=== PATIENT | male | born 1980 | race African-American/Black ===

== ENCOUNTER 2018-07-08 04:50 | Emergency (ER) | payer OTHER ==
[~2018-07-08] VITALS: Ht 175.3 cm; Wt 95.3 kg
[~2018-07-08 04:50] MED LIST: AMOXICILLIN 50500 M1 PO; AMOXICILLIN 50500 MG PO; BACTRIM DS TAB1 EACH PO; CEPHALEXIN 500500 M3 PO; DOXYCYCLINE 10100 MG PO; HYDROCODONE-APA1 TA1 PO; IBUPROFEN 800800 MG PO; LORTABELXR PO; NOHOMEMEDICATIONS; NORCO 5-325 TA1 EACH PO; PROVENTIL HFA6.7 G1 INH; TRAMADOL 50 MG50 MG PO; XANAX 0.25 MG0.25 MG PO; ZOFRAN ODT4 MG PO
[2018-07-08 05:20] LABS: ABSOLUTE EOSINOPHILS 0.1 thou/uL (0.0-0.7); ABSOLUTE MONOCYTES 0.3 thou/uL (0.0-1.2); ABSOLUTE NEUTROPHILS 5.3 thou/uL (1.6-8.1); BASOPHILS 0.5 %; EOSINOPHILS 0.7 %; HEMATOCRIT 43.1 % (42.0-52.0); HEMOGLOBIN 14.6 gm/dL (14.0-18.0); LYMPHOCYTES 25.8 %; MCH 32.3 pg (26.0-34.0); MCHC 33.9 g/dL (28.0-37.0); MCV 95.2 fL (80.0-100.0); MPV 10.3 fl. (7.2-11.1); NUCLEATED RBCS 0 /100WBC; PLATELET COUNT* 228 thou/uL (150-400); RBC 4.53 mil/uL (4.50-6.00); RDW-CV 13.6 % (10.5-14.5); WBC 7.7 thou/uL (4.0-11.0)
[2018-07-08 05:26] LABS: ANION GAP 11 mmol/L (7-16); BUN 11 mg/dL (7-18); CHLORIDE 107 mmol/L (98-107); CO2 26 mmol/L (21-32); GLUCOSE 140 mg/dL (70-99); POTASSIUM 3.4 mmol/L (3.5-5.1); SODIUM 144 mmol/L (136-145)
[2018-07-08 05:33] LABS: ALBUMIN 4.3 g/dL (3.4-5.0); ALKALINE PHOSPHATASE 69 U/L (46-116); LIPASE 66 U/L (73-393); SGOT 23 U/L (15-37); SGPT 46 U/L (30-65); TOTAL BILIRUBIN 0.2 mg/dL (<0.1-1.0); TOTAL PROTEIN 8.1 g/dL (6.4-8.2); TROPONIN-I LEVEL <0.06 ng/mL (<0.06)
[2018-07-08 08:24] VITALS: BP 125/71
== END 2018-07-08 08:24 | disposition home or self-care (01) ==
LOC: M.ERS 04:50
PROVIDERS: Personal Emergency Response Attendant
DX: F10.129 Alcohol abuse with intoxication, unspecified (principal); K92.0 Hematemesis